=== PATIENT | male | born 1970 | race Caucasian/White ===

== ENCOUNTER 2019-01-17 07:40 | Emergency (ER) | payer SELFPAY ==
[2019-01-17] MEDS ORDERED: Ketorolac INJ* 30 MG/ML 1 ML VIAL IM ONE (07:57)
[2019-01-17] MEDS ORDERED: oxyCODONE/Acetamin 5/325 MG* TAB PO ONE (07:57)
[2019-01-17] MEDS ORDERED: Lidocaine PATCH 5%* 1 PATCH TRANSDERM ONE (07:57)
--- NOTE | 2019-01-17 08:04 | ED ---
Back Pain - HPI Summary HPI Summary: 48-year-old male presents with back pain today. He states he was bending over when something popped in his back. He states he's had extreme pain since then. Took some Tylenol without relief. Never had this before. No history of back pain. States he has broken his pelvis previously. No numbness and tingling. No pain to his leg. No urinary symptoms. No loss of bowel or bladder or saddle anesthesias. No fever. pain is worse when tries to ambulate. - History of Current Complaint Chief Complaint: EDBackInjuryPain Stated Complaint: BACK PAIN PER PT Time Seen by Provider: 01/17/19 07:46 Pain Intensity: 10 - Allergies/Home Medications Allergies/Adverse Reactions: Allergies Allergy/AdvReac Type Severity Reaction Status Date / Time No Known Allergies Allergy Verified 01/17/19 07:45 Home Medications: Home Medications Zantac 75 mg PO DAILY 01/17/19 [History Confirmed 01/17/19] ZyrTEC 10 MG TAB* 10 mg PO DAILY 01/17/19 [History Confirmed 01/17/19] PMH/Surg Hx/FS Hx/Imm Hx Endocrine/Hematology History: Denies: Hx Anticoagulant Therapy Respiratory History: Denies: Hx Asthma Infectious Disease History: No Infectious Disease History: Denies: Traveled Outside the [place] in Last 30 Days - Family History Known Family History: Positive: Non-Contributory - Social History Alcohol Use: Occasionally Substance Use Type: Reports: None Smoking Status (MU): Never Smoked Tobacco Review of Systems Negative: Fever Negative: Chest Pain Negative: Shortness Of Breath Positive: Myalgia - back pain All Other Systems Reviewed And Are Negative: Yes Physical Exam Triage Information Reviewed: Yes Vital Signs On Initial Exam: Initial Vitals Temp Pulse Resp BP Pulse Ox 98.0 F 73 20 126/87 98 01/17/19 07:43 01/17/19 07:43 01/17/19 07:43 01/17/19 07:43 01/17/19 07:43 Vital Signs Reviewed: Yes Appearance: Positive: Well-Appearing Skin: Positive: Warm, Dry Head/Face: Positive: Normal Head/Face Inspection Eyes: Positive: Normal, Conjunctiva Clear ENT: Positive: Pharynx normal Respiratory/Lung Sounds: Positive: Clear to Auscultation, Breath Sounds Present Cardiovascular: Positive: Normal, RRR Musculoskeletal: Positive: Strength/ROM Intact - legs, Other - pos SLR, tenderness lower back, sensation grossly intact Neurological: Positive: Normal Psychiatric: Positive: Normal Diagnostics - Vital Signs Vital Signs Temp Pulse Resp BP Pulse Ox 01/17/19 07:43 98.0 F 73 20 126/87 98 - Laboratory Lab Statement: Any lab studies that have been ordered have been reviewed, and results considered in the medical decision making process. - CT lumbar CT Interpretation Completed By: Radiologist Summary of CT Findings: IMPRESSION: DEGENERATIVE DISC DISEASE, WITH MILD OSTEOARTHRITIS, MOST PRONOUNCED ALONG THE LOWER LUMBAR SPINE DESCRIBED ABOVE. Re-Evaluation - Re-Evaluation First Eval Re-Evaluation Time: 09:13 Change: Improved Comment: feeling better Back Pain Course/Dx - Course Course Of Treatment: 48-year-old male presents with back pain today. He states he was bending over when something popped in his back. He states he's had extreme pain since then. Took some Tylenol without relief. Never had this before. No history of back pain. States he has broken his pelvis previously. No numbness and tingling. No pain to his leg. No urinary symptoms. No loss of bowel or bladder or saddle anesthesias. No fever. pain is worse when tries to ambulate. On exam tenderness lower back. Positive straight leg raise. CT no fracture. gave pain meds and feeling better. will discharge with steriod and muscle relaxer. told to follow up with primary. patient understand and agrees with plan. - Diagnoses Differential Diagnosis/HQI/PQRI: Positive: Herniated Disc, Strain, Sprain Provider Diagnoses: Back pain Discharge ED - Sign-Out/Discharge Documenting (check all that apply): Patient Departure Patient Received Moderate/Deep Sedation with Procedure: No - Discharge Plan Condition: Good Disposition: HOME Patient Education Materials: Back Pain (ED) Referrals: [facility] [Outside] [facility] [Outside] Additional Instructions: Follow directions on package for Medrol pack Take muscle relaxers three times a day Use ibuprofen or Tylenol for pain every 6 hours ice/heat area, move as much as possible Follow up with [facility] establish care with primary Return to ED if develop any new or worsening symptoms - Billing Disposition and Condition Condition: GOOD Disposition: Home
[2019-01-17 09:41] VITALS: BP 101/65
[2019-01-17] MEDS ORDERED: Lidocaine Patch REMOVE* 1 NOTE MISC PATCH OFF SCH (21:00)
== END 2019-01-17 09:38 | disposition home or self-care (01) ==
LOC: ED 07:40
DX: M54.5 Low back pain (principal); M51.36 Other intervertebral disc degeneration, lumbar region; M47.816 Spondylosis without myelopathy or radiculopathy, lumbar region
CPT/HCPCS: 72131; 96372; 99283; A9270-GY; J1885